=== PATIENT | female | born 2000 | race African-American/Black ===

== ENCOUNTER 2024-09-29 10:05 | Emergency (ER) | payer MEDICAID, SELFPAY ==
[~2024-09-29] VITALS: Ht 170.2 cm; Wt 60.6 kg
[2024-09-29] MEDS: ACETAMINOPHEN 500 MG TAB PO ONE (10:51)
[2024-09-29] MEDS: KETOROLAC 30 MG/ML 1ML VIAL IV ONE (11:59)
[2024-09-29 12:17] LABS: BASO % 0.2 % (0.0-1.0); EOS % 0.9 % (0.0-3.0); HEMATOCRIT 36.6 % (36.0-47.0); HEMOGLOBIN 11.9 g/dl (12.0-15.5); LYMPH # 1.9 10^3/uL (1.5-5.0); LYMPH % 42.1 % (24.0-44.0); MEAN CORPUSCULAR HEMOGLOBIN 28.8 pg (27.0-33.0); MEAN CORPUSCULAR HGB CONC 32.5 g/dl (32.0-36.5); MEAN CORPUSCULAR VOLUME 88.6 fl (80.0-96.0); MONO # 0.4 10^3/uL (0.0-0.8); MONO % 9.3 % (2.0-8.0); NEUTROPHILS # 2.1 10^3/uL (1.5-8.5); NEUTROPHILS % 47.3 % (36.0-66.0); PLATELET COUNT, AUTOMATED 190 10^3/uL (150-450); RED BLOOD COUNT 4.13 10^6/uL (4.00-5.40); WHITE BLOOD COUNT 4.4 10^3/uL (4.0-10.0)
[2024-09-29 12:58] LABS: LIPASE 33 U/L (12-53)
[2024-09-29 13:00] LABS: ALBUMIN 3.8 G/DL (3.2-5.2); ALKALINE PHOSPHATASE 56 U/L (35-104); ALT/SGPT 27 U/L (7.0-40); AST/SGOT 22 U/L (<34); BILIRUBIN,DIRECT < 0.1 MG/DL (<0.4); BILIRUBIN,TOTAL 0.2 MG/DL (0.3-1.2); TOTAL PROTEIN 7.6 G/DL (5.7-8.2)
[2024-09-29 15:07] LABS: KETONE, URINE AUTO RFX NEGATIVE (NEGATIVE); LEUKOCYTE ESTERASE UR AUTO RFX NEGATIVE (NEGATIVE); MUCUS, URINE RFX SMALL (NEGATIVE); NITRITE, URINE AUTO RFX NEGATIVE (NEGATIVE); RBC, URINE AUTO RFX TNTC /HPF (0-3); SQUAM EPITHELIAL CELL UR AURFX 3 /HPF (0-6); WBC, URINE AUTO RFX 5 /HPF (0-3)
[2024-09-29 15:22] VITALS: BP 95/54; TEMP 98.7; O2SAT 100
== END 2024-09-29 15:26 | disposition home or self-care (01) ==
LOC: M ED 10:05
DX: N94.6 Dysmenorrhea, unspecified (principal); R10.84 Generalized abdominal pain
CPT/HCPCS: 76830; 76856; 80047; 80076; 81001; 83690; 84702; 85025; 86850; 86900; 86901; 93976; 96374; 99284; J1885